=== PATIENT | male | born 1965 | race Caucasian/White ===

== ENCOUNTER 2021-06-15 14:06 | Inpatient (IN) | payer MEDICAID, OTHER ==
[~2021-06-15] VITALS: Ht 172.7 cm; Wt 72.6 kg
--- NOTE | 2021-06-15 14:49 | NUR ---
BIB [facility] FOR ALOC. PATIENT IS SLEEPY, AROUSES TO PRESSURE. VITAL SIGNS STABLE. PLACED ON CONTINUOUS PEST CONTROL SERVICE TECHNICIAN. IV ALREADY IN PLACE, FLUSHES WELL
[2021-06-15] MEDS ORDERED: ONDA4TAB11 PO (14:57)
[2021-06-15] MEDS ORDERED: ACET-2154 PO (14:57)
[2021-06-15] MEDS ORDERED: DOXA2TAB2 PO (14:57)
[2021-06-15] MEDS ORDERED: CHLO25CA22 PO (14:57)
[2021-06-15] MEDS ORDERED: QUET100T PO (14:57)
[2021-06-15] MEDS ORDERED: AMLO10TA59 PO (14:57)
[2021-06-15] MEDS ORDERED: QUET25TA PO (14:57)
[2021-06-15] MEDS ORDERED: MELA3TAB41 PO (14:57)
[2021-06-15] MEDS ORDERED: TAMS-3 PO (14:57)
[2021-06-15] MEDS ORDERED: HALO2TAB PO (14:57)
[2021-06-15] MEDS ORDERED: LABE200T5 PO (14:57)
[2021-06-15] MEDS ORDERED: HALOPERIDOL IM (14:57)
[2021-06-15] MEDS ORDERED: LOSA100T31 PO (14:57)
[2021-06-15 16:06] LABS: HEMATOCRIT 34.9 % (36.7-47.1); MEAN CORPUSCULAR HEMOGLOBIN 30.7 uug (23.8-33.4); MEAN CORPUSCULAR VOLUME 88.6 fL (73.0-96.2); PLATELET COUNT (AUTO) 291 K/uL (152-348)
[2021-06-15 16:19] LABS: CARBON DIOXIDE 28 mmol/L (21-32); CHLORIDE 104 mmol/L (98-107); CREATININE 0.8 mg/dL (0.6-1.3); GLUCOSE 123 mg/dL (74-106); POTASSIUM 3.6 mmol/L (3.5-5.1); UREA NITROGEN, BLOOD 20 mg/dL (7-18)
[2021-06-15 16:23] LABS: ETHANOL < 3 MG/DL (0-0)
[2021-06-15 16:24] LABS: THYROID STIMULATING HORMONE 0.857 mIU/mL (0.358-3.740)
--- NOTE | 2021-06-15 16:44 | NUR ---
PATIENT IS UNABLE TO VOID IN A CUP OR URINAL DR ABDULLAHI NOTIFIED. WILL PLACE [facility] FOR URINE SAMPLE PER
[2021-06-15 16:55] LABS: ACETAMINOPHEN < 2.0 ug/mL (10-30); ALANINE AMINOTRANSFERASE 23 U/L (16-63); ALKALINE PHOSPHATASE 98 U/L (50-136); ASPARTATE AMINOTRANSFERASE 25 U/L (15-37); BILIRUBIN,DIRECT 0.2 mg/dL (0.0-0.2); BILIRUBIN,TOTAL 0.5 mg/dL (0.2-1.0); TOTAL PROTEIN, SERUM 8.2 g/dL (6.4-8.2)
[2021-06-15] MEDS ORDERED: CEFTRIAXONE 1 G in IV DEXTROSE 5% 50 ML IV ONE (18:00)
[2021-06-15 18:59] LABS: *BILIRUBIN,URIN NEGATIVE (NEGATIVE); *BLOOD, URINE NEGATIVE (NEGATIVE); *CLARITY,URINE CLEAR (CLEAR); *COLOR,URINE YELLOW (YELLOW); *KETONES,URINE 1+ (NEGATIVE); LEUKOCYTE ESTERASE ,URINE NEGATIVE (NEGATIVE); NITRITE, URINE NEGATIVE (NEGATIVE); UGLUCOSE NEGATIVE (NEGATIVE)
[2021-06-15] MEDS ORDERED: AZITHROMYCIN IV 500 MG in IV DEXTROSE 5% 250 ML IV ONE (19:00)
[2021-06-15 19:17] LABS: *AMPHETAMINE, URINE NEGATIVE (NEGATIVE); *CANNABINOID, URINE NEGATIVE (NEGATIVE); *COCCAINE, URINE NEGATIVE (NEGATIVE); *OPIATE, URINE NEGATIVE (NEGATIVE); *PHENCYCLIDINE SCREEN,URINE NEGATIVE (NEGATIVE)
[2021-06-15] MEDS: CEFTRIAXONE 1 G in IV DEXTROSE 5% 50 ML IV SCH ×2 (19:23→19:50)
[2021-06-15] MEDS ORDERED: CEFTRIAXONE /D5W 50ML IVPB **ER PYXIS IV ONE (19:26)
[2021-06-15] MEDS ORDERED: MAGNESIUM HYDROXIDE 30 ML LIQUID UDC PO PRN (19:30)
[2021-06-15] MEDS ORDERED: ACETAMINOPHEN 325 MG TABLET PO PRN (19:30)
[2021-06-15] MEDS ORDERED: Z GUARD REMEDY PASTE 57 GM TUBE TOP PRN (19:30)
[2021-06-15] MEDS ORDERED: IV NS 1000 ML 1,000 ML IV PRN (19:30)
--- NOTE | 2021-06-15 19:30 | NUR ---
[facility] SENT TO LAB HAND OFF REPORT GIVEN TO MIKE FINLEY
[2021-06-15] MEDS ORDERED: AZITHROMYCIN 500MG/ D5W 250ML IVPB **ER PYXIS ONLY IV ONE (19:57)
--- NOTE | 2021-06-15 19:58 | NUR ---
ZITHROMAX 500MG IV ACCIDENTALLY CHARTED BY TUSHAR GARAY, INSTEAD OF ROCEPHINE 1 G VIA IV AT 192. ZITHROMAX ADMINISTERRED BY ME AT 1949 VIA IV 20 G RT FA.
--- NOTE | 2021-06-15 21:34 | NUR ---
Patient is resting comfortably in bed with eyes closed. Breathing even and unlabored.
--- NOTE | 2021-06-15 22:17 | NUR ---
GAVE REPORT TO TUSHAR SOTO.
--- NOTE | 2021-06-15 22:58 | NUR ---
Pt. admitted to tele room 322 , under care of CAMPUS RECRUITING COORDINATOR- Martina Mccann. Dx: AMS Belongs List completed
[2021-06-15] MEDS: LABETALOL HCL 200 MG TABLET PO SCH (23:00)
[2021-06-15 23:30] VITALS: BP 137/75
[2021-06-16 04:00] VITALS: BP 160/95
[2021-06-16 05:04] VITALS: BP 160/95
[2021-06-16 06:00] VITALS: BP 133/85
[2021-06-16] MEDS: LABETALOL HCL 200 MG TABLET PO SCH ×3 (06:00→22:00)
[2021-06-16] MEDS: LOSARTAN POTASSIUM 50 MG TABLET PO SCH (08:21)
[2021-06-16] MEDS: TAMSULOSIN HCL 0.4 MG CAP.SR.24H PO SCH (08:21)
[2021-06-16] MEDS: AMLODIPINE 10 MG TABLET PO SCH (08:22)
[2021-06-16 08:25] LABS: HEMATOCRIT 32.3 % (36.7-47.1); MEAN CORPUSCULAR HEMOGLOBIN 31.2 uug (23.8-33.4); MEAN CORPUSCULAR VOLUME 88.3 fL (73.0-96.2); PLATELET COUNT (AUTO) 277 K/uL (152-348)
[2021-06-16 08:35] LABS: CREATININE 0.8 mg/dL (0.6-1.3); MAGNESIUM 1.5 mg/dL (1.8-2.4); POTASSIUM 3.4 mmol/L (3.5-5.1)
[2021-06-16] MEDS: DOXAZOSIN 1 MG TABLET PO SCH (09:00)
[2021-06-16] MEDS ORDERED: Medication Not On Formulary EA (Losartan Potassium 1 TAB) PO SCH (09:00)
--- NOTE | 2021-06-16 09:24 | NUR ---
VERY CONFUSED ATTEMPTS TO HIT THE NURSE SPIT OUT MEDICATION AT THIS TIME.
--- NOTE | 2021-06-16 11:00 | NUR ---
PATIENT SEEN AND EVALUATED BY THE SPEECH THERAPIST AND SHE STATED TO KEEP PATIENT NPO FOR NOW WILL SEE HIM AGAIN LUKE MATSON AWARE.
[2021-06-16 12:00] VITALS: BP 135/78
[2021-06-16] MEDS ORDERED: POTASSIUM CHLORIDE 20 MEQ TAB.PRT.SR PO ONE (15:00)
--- NOTE | 2021-06-16 15:30 | NUR ---
POTASSIUM LEVEL IS 3.4 AND MAG IS 1.4 WITH NEW ORDERS AND NOTED PATIENT HAS A POOR VEIN PATIENTS PROVIDER AWARE WITH ORDER FOR A MIDLINE CUSHION SPRING ASSEMBLER AWARE THE MIDLINE NURSE WILL BE HERE ABOUT 1900 TODAY.
[2021-06-16] MEDS: POTASSIUM CHLORIDE 10 MEQ, LIDOCAINE-MPF 1% 1 ML in IV DEXTROSE 5% 100 ML IV SCH ×2 (15:54→17:58)
[2021-06-16 16:00] VITALS: BP 141/84
[2021-06-16] MEDS: IV D5/ 0.9% NACL 1,000 ML IV PRN (16:31)
[2021-06-16] MEDS ORDERED: PIPERACILLIN SODIUM/TAZOBACTAM 3.375 G in IV DEXTROSE 5% 50 ML IV ONE (17:00)
--- NOTE | 2021-06-16 17:38 | NUR ---
MID LINE INSERTED LEFT UPPER ARM GAUGE 18 ORDERED.
[2021-06-16] MEDS ORDERED: CEFTRIAXONE 1 G in IV DEXTROSE 5% 50 ML IV SCH (18:00)
--- NOTE | 2021-06-16 18:49 | NUR ---
TURNED AND REPOSITIONED LAST BAG OF POTASSIUM IS IN PROGRESS WILL ENDORSE THE 2 GRAMS OF MAGNESSIUM TO NEXT SHIFT.
[2021-06-16] MEDS ORDERED: AZITHROMYCIN IV 500 MG in IV DEXTROSE 5% 250 ML IV SCH (19:00)
[2021-06-16] MEDS: MAGNESIUM SULFATE/D5W 100 ML IV SCH ×2 (19:42→20:48)
[2021-06-16 20:00] VITALS: BP 146/81
[2021-06-16] MEDS: Z GUARD REMEDY PASTE 57 GM TUBE TOP SCH (20:49)
[2021-06-17] MEDS: PIPERACILLIN SODIUM/TAZOBACTAM 3.375 G in IV DEXTROSE 5% 100 ML IV SCH ×3 (01:18→16:33)
[2021-06-17 04:00] VITALS: BP 144/79
[2021-06-17] MEDS: LABETALOL HCL 200 MG TABLET PO SCH ×2 (06:00→13:21)
--- NOTE | 2021-06-17 06:55 | NUR ---
pt rested well in between care; pt remains somnolent and po meds are held for safety; IV Mg given; needs attended; continue to monitor; continue plan of care.
[2021-06-17 08:03] LABS: HEMATOCRIT 32.1 % (36.7-47.1); MEAN CORPUSCULAR HEMOGLOBIN 30.9 uug (23.8-33.4); MEAN CORPUSCULAR VOLUME 88.4 fL (73.0-96.2); PLATELET COUNT (AUTO) 276 K/uL (152-348)
[2021-06-17 08:10] LABS: CREATININE 0.7 mg/dL (0.6-1.3); POTASSIUM 3.3 mmol/L (3.5-5.1)
[2021-06-17] MEDS: TAMSULOSIN HCL 0.4 MG CAP.SR.24H PO SCH (09:05)
[2021-06-17] MEDS: DOXAZOSIN 1 MG TABLET PO SCH (09:08)
[2021-06-17] MEDS: LOSARTAN POTASSIUM 50 MG TABLET PO SCH (09:09)
[2021-06-17] MEDS: Z GUARD REMEDY PASTE 57 GM TUBE TOP SCH ×2 (09:09→20:10)
[2021-06-17] MEDS: AMLODIPINE 10 MG TABLET PO SCH (09:09)
--- NOTE | 2021-06-17 10:27 | NUR ---
WOUND CARE CONSULT: REVIEWED CHART, NURSING DOCUMENTATION AND PHOTO WHICH INDICATES SACRAL INTACT DEEP TISSUE INJURY, PRESENT ON ADMISSION. RECOMMENDATIONS MADE FOR SKIN PROTECTION. DISCUSSED WITH NURSING STAFF. MD IN AGREEMENT WITH PLAN OF CARE.
[2021-06-17] MEDS ORDERED: POTASSIUM CHLORIDE 20 MEQ TAB.PRT.SR PO ONE (10:45)
[2021-06-17 11:09] VITALS: BP 155/93
[2021-06-17 15:08] VITALS: BP 134/82
--- NOTE | 2021-06-17 18:30 | NUR ---
Patient seen and examined by speech therapy with ordered strict NPO for aspiration precaution, NGTube placement intact and patent. Patient awaiting PCR result, rapid covid test negative.
[2021-06-17] MEDS ORDERED: MAGNESIUM HYDROXIDE 30 ML LIQUID UDC NG PRN (18:45)
[2021-06-17 20:00] VITALS: BP 129/80
[2021-06-17] MEDS: LABETALOL HCL 200 MG TABLET NG SCH (22:00)
[2021-06-17] MEDS: IV D5/ 0.9% NACL 1,000 ML IV PRN (23:18)
--- NOTE | 2021-06-17 23:37 | NUR ---
Received pt resting in bed. Pt is nonverbal. On 2L O2 via NC, no acute distress noted. No facial cues for pain, FLACC 0. Noted pt pulled out his NGT. Pt is high risk aspiration, and is NPO. Notified [facility] with order to put NGT back, order an xray, and put mittens to prevent pulling out lines. Reinserted NGT. No bleeding noted. No acute distress during placement. Pt tolerated well. 2 nurses confirmed placement and waiting for radiologist to verify placement. As per [facility] BUSINESS ANALYST INTERN, pt can start with feeding of Jevity 1.2 @ 40cc/ hr once placement is verified and will consult dietitian. Pt turned and repositioned. Both heels offloaded. HOB elevated. Safety measures maintained. Will continue to monitor.
--- NOTE | 2021-06-18 00:03 | NUR ---
Unable to given 2200 Trandate dose due to pulled out NGT. Will continue to monitor.
[2021-06-18] MEDS: PIPERACILLIN SODIUM/TAZOBACTAM 3.375 G in IV DEXTROSE 5% 100 ML IV SCH ×3 (00:39→17:01)
--- NOTE | 2021-06-18 02:13 | NUR ---
Followed up with radiology regarding xray result for ngtube placement. As per radiologist, all imaging readings are backed up right now and will call again as soon as the result comes in.
--- NOTE | 2021-06-18 03:07 | NUR ---
Radiology called for CXR result, needs to advance NG tube. Advanced NG tube, pt tolerated well. No acute distress noted. Radiologist will verify placement again. Continue to monitor.
[2021-06-18 05:43] VITALS: BP 140/85
[2021-06-18] MEDS: LABETALOL HCL 200 MG TABLET NG SCH ×3 (06:05→21:29)
--- NOTE | 2021-06-18 06:23 | NUR ---
CXR result came out and NGT verified to be in place. DIRECTOR SAFETY ok to start feeding when placement is verified.
[2021-06-18] MEDS: JEVITY 1.2 1000 ML LIQUID GT PRN (07:02)
--- NOTE | 2021-06-18 07:17 | NUR ---
Pt retaining urine. Bladder scan showed 845 cc of retention. Lai catheter inserted with 900 cc output, yellow colored urine. NG tube feeding started, pt tolerating well. Will endorse accordingly.
[2021-06-18 08:04] LABS: HEMATOCRIT 31.1 % (36.7-47.1); MEAN CORPUSCULAR HEMOGLOBIN 31.2 uug (23.8-33.4); MEAN CORPUSCULAR VOLUME 88.3 fL (73.0-96.2); PLATELET COUNT (AUTO) 288 K/uL (152-348)
[2021-06-18 08:44] LABS: CREATININE 0.7 mg/dL (0.6-1.3)
[2021-06-18] MEDS ORDERED: DOXAZOSIN 1 MG TABLET NG SCH (09:00)
[2021-06-18] MEDS: Z GUARD REMEDY PASTE 57 GM TUBE TOP SCH ×2 (09:28→21:30)
[2021-06-18] MEDS: TAMSULOSIN HCL 0.4 MG CAP.SR.24H PO SCH (09:28)
[2021-06-18] MEDS: AMLODIPINE 10 MG TABLET NG SCH (09:41)
[2021-06-18] MEDS: DOXAZOSIN 2 MG TABLET NG SCH (09:41)
[2021-06-18] MEDS: LOSARTAN POTASSIUM 50 MG TABLET NG SCH (09:41)
--- NOTE | 2021-06-18 09:58 | NUR ---
Received patient with ongoing NGT of Jevity at 40cc/hr , tolerated well. Patient is awake , unable to follow commands, patient unable to engaged in a conversation, moans and can speak a word or two, on oxygen at 2lpm saturating at 99%. Checked placement of NGT via auscultation, patient's head of bed at 45 degree. All due meds given per MD order. no s/s of distress. Left upper arm midline intact. Call light within reach. All needs met promptly. Will continue to monitor for patient's safety.
[2021-06-18] MEDS: IV D5/ 0.9% NACL 1,000 ML IV PRN (12:40)
[2021-06-18 13:25] VITALS: BP 115/67
[2021-06-18 16:00] VITALS: BP 125/68
--- NOTE | 2021-06-18 18:00 | NUR ---
DC isolation per Salena Mccann LANDSCAPE NURSERYMAN, patient is no longer PUI.
--- NOTE | 2021-06-18 18:45 | NUR ---
Per Salena Mccann , patient is no longer a "PUI" will endorsed to the next shift .
[2021-06-18 20:30] VITALS: BP 117/76
[2021-06-19] MEDS: PIPERACILLIN SODIUM/TAZOBACTAM 3.375 G in IV DEXTROSE 5% 100 ML IV SCH ×3 (00:25→17:08)
[2021-06-19] MEDS: LABETALOL HCL 200 MG TABLET NG SCH ×3 (05:49→22:18)
[2021-06-19 05:50] VITALS: BP 139/74
--- NOTE | 2021-06-19 06:53 | NUR ---
Received pt asleep on bed with no respiratory distress noted upon initial rounds. On O2 at 2lpm via NC saturating at 95%. On NPO and Jevity 1.2 running at 40 ml/hr. MATTI midline still patent and intact with D5 NS 1 L running at 90 ml/hr. No infiltration on IV site. Mittens restraint order renewed, skin and circulation check done q2h. Pt slept intermittently throughout the night. All needs attended. Frequent visual checks done. Will endorse to next shift for continuity of care.
[2021-06-19 07:59] LABS: HEMATOCRIT 31.2 % (36.7-47.1); MEAN CORPUSCULAR HEMOGLOBIN 31.3 uug (23.8-33.4); PLATELET COUNT (AUTO) 316 K/uL (152-348)
[2021-06-19 08:34] LABS: CREATININE 0.7 mg/dL (0.6-1.3); POTASSIUM 3.1 mmol/L (3.5-5.1)
[2021-06-19] MEDS: IV D5/ 0.9% NACL 1,000 ML IV PRN (09:36)
[2021-06-19] MEDS: LOSARTAN POTASSIUM 50 MG TABLET NG SCH (09:39)
[2021-06-19] MEDS: AMLODIPINE 10 MG TABLET NG SCH (09:39)
[2021-06-19] MEDS: Z GUARD REMEDY PASTE 57 GM TUBE TOP SCH ×2 (09:39→22:19)
[2021-06-19] MEDS: TAMSULOSIN HCL 0.4 MG CAP.SR.24H PO SCH (09:39)
[2021-06-19] MEDS: DOXAZOSIN 2 MG TABLET NG SCH (09:39)
[2021-06-19] MEDS ORDERED: POTASSIUM CHLORIDE 20 MEQ POWDER PACKET NG ONE (10:00)
[2021-06-19 11:33] VITALS: BP 159/79
[2021-06-19] MEDS ORDERED: hydrALAZINE HCL 20 MG/1 ML VIAL IV PRN (11:45)
--- NOTE | 2021-06-19 14:54 | NUR ---
per licensed and certified midwife juan carlos hold feeding until ngt placement is confirmed. xray was done but no mention of ngt. called ana cristina at xray 2x and informed him he said will have md read result again. licensed and certified midwife juan carlos informed with order to hold ngt until confirmed. will cont to monitor.
--- NOTE | 2021-06-19 15:20 | NUR ---
received call from dr. galan and stated "no ngt seen in the pathway of the esophagus". informed with order to reinsert and kub to confirm noted and carried out.
[2021-06-19 16:00] VITALS: BP 146/69
--- NOTE | 2021-06-19 17:20 | NUR ---
called medical office technician said he will f/up with radiologist for kub results. pt is alert but non verbal. no acute distress noted. iv intact atb ongoing no adverse/allergic reaction. will cont to monitor.
--- NOTE | 2021-06-19 18:40 | NUR ---
awake in bed. ngt feeding resumed per order. pt keeps removing nasal cannula. was changed to simple mask at 3 Lpm satting 95-96%. no sob noted. hob elevated at all times for aspiration precaution. suctioned prn. safety measures in place. needs attended to. cont to monitor.
[2021-06-19] MEDS: ACETAMINOPHEN 325 MG TABLET NG PRN ×2 (18:52→22:18)
--- NOTE | 2021-06-19 19:30 | NUR ---
Patient is asleep in bed, with occasional agitation. Easily arousable with tactile stimuli. NGT in place to left nare. On 02 at 3L via simple mask, sating 96-97%. No sob noted. HOB elevated at all times for aspiration precaution. Mittens in place, no skin breakdown noted. No facial grimacing. Needs assessed and met. Safety measures initiated.
[2021-06-19] MEDS: JEVITY 1.2 1000 ML LIQUID GT PRN (22:18)
[2021-06-19 22:54] VITALS: BP 116/72
[2021-06-20] MEDS: PIPERACILLIN SODIUM/TAZOBACTAM 3.375 G in IV DEXTROSE 5% 100 ML IV SCH ×3 (01:20→16:16)
[2021-06-20] MEDS: LABETALOL HCL 200 MG TABLET NG SCH ×3 (05:34→22:00)
--- NOTE | 2021-06-20 05:50 | NUR ---
Patient is asleep in bed, with occasional agitation. Easily arousable with tactile stimuli. NGT in place to left nare. On 02 at 3L via NC, sating 98%. No sob noted. HOB elevated at all times for aspiration precaution. Mittens in place, no skin breakdown noted. No significant event this shift. Needs assessed and met. Safety measures initiated.
[2021-06-20 06:45] VITALS: BP 126/81
[2021-06-20 07:24] LABS: HEMATOCRIT 28.9 % (36.7-47.1); MEAN CORPUSCULAR HEMOGLOBIN 30.5 uug (23.8-33.4); MEAN CORPUSCULAR VOLUME 88.4 fL (73.0-96.2); PLATELET COUNT (AUTO) 265 K/uL (152-348)
--- NOTE | 2021-06-20 07:30 | NUR ---
received pt in bed eyes closed but responsive to stimuli. no acute distress. on 3 lpm nc satting 94-95%. no sob noted. ngt intact and patent feeding tolerated. no n/v/d reported. watson intact and patent yellow urine in the bag. iv intact and patent. no s/sx of facial grimacing. safety measures in place. cont to monitor.
[2021-06-20 07:31] LABS: CREATININE 0.9 mg/dL (0.6-1.3); POTASSIUM 3.4 mmol/L (3.5-5.1)
[2021-06-20] MEDS: Z GUARD REMEDY PASTE 57 GM TUBE TOP SCH ×2 (08:30→21:00)
[2021-06-20] MEDS: TAMSULOSIN HCL 0.4 MG CAP.SR.24H PO SCH (08:30)
[2021-06-20] MEDS: AMLODIPINE 10 MG TABLET NG SCH (08:30)
[2021-06-20] MEDS: DOXAZOSIN 2 MG TABLET NG SCH (08:30)
[2021-06-20] MEDS: LOSARTAN POTASSIUM 50 MG TABLET NG SCH (08:30)
[2021-06-20] MEDS ORDERED: POTASSIUM CHLORIDE 20 MEQ POWDER PACKET GT ONE (09:45)
[2021-06-20 12:00] VITALS: BP 144/84
[2021-06-20 16:00] VITALS: BP 135/77
--- NOTE | 2021-06-20 18:53 | NUR ---
alert and responsive. hob kept elevated for aspiration precaution. no s/sx of pain or sob. remains on 3lpm nc satting 95%. ngt feeding tolerated. no n/v/d. safety measures kept. needs attended. continue to monitor.
--- NOTE | 2021-06-20 19:00 | NUR ---
[facility] bedside. Pt is AAOx0. Pt is severely altered and unable to answer questions or follow commands.
[2021-06-20 20:03] VITALS: BP 122/69
[2021-06-21] MEDS: PIPERACILLIN SODIUM/TAZOBACTAM 3.375 G in IV DEXTROSE 5% 100 ML IV SCH ×3 (01:00→16:14)
[2021-06-21 04:06] VITALS: BP 119/63
[2021-06-21] MEDS: LABETALOL HCL 200 MG TABLET NG SCH ×2 (05:37→14:00)
[2021-06-21 08:20] LABS: HEMATOCRIT 27.1 % (36.7-47.1); MEAN CORPUSCULAR HEMOGLOBIN 31.2 uug (23.8-33.4); MEAN CORPUSCULAR VOLUME 87.9 fL (73.0-96.2); PLATELET COUNT (AUTO) 276 K/uL (152-348)
[2021-06-21 08:27] LABS: CREATININE 0.7 mg/dL (0.6-1.3); POTASSIUM 3.2 mmol/L (3.5-5.1)
[2021-06-21] MEDS: AMLODIPINE 10 MG TABLET NG SCH (09:00)
[2021-06-21] MEDS: LOSARTAN POTASSIUM 50 MG TABLET NG SCH (09:00)
[2021-06-21] MEDS: TAMSULOSIN HCL 0.4 MG CAP.SR.24H PO SCH (09:00)
[2021-06-21] MEDS: DOXAZOSIN 2 MG TABLET NG SCH (09:00)
[2021-06-21] MEDS: Z GUARD REMEDY PASTE 57 GM TUBE TOP SCH (11:10)
[2021-06-21] MEDS: POTASSIUM CHLORIDE 50 ML IV SCH ×4 (11:12→16:10)
[2021-06-21 12:00] VITALS: BP 144/78
[2021-06-21 16:00] VITALS: BP 111/76
--- NOTE | 2021-06-21 20:07 | NUR ---
awaiting for discharge . transport in for the ordered discharge. Day shift rn facilitating the discharge process
[2021-06-21 20:22] VITALS: BP 155/74
--- NOTE | 2021-06-21 20:25 | NUR ---
report given by the day shift rn to the facility and discharge process and document given to the ambulance personell. iv cannua to the right forearm discontinued and iv cannula to the left upper arm midline left in place for the iv antibiotics.ambulance personell in for the transfer,. report given by the day shift rn
[2021-06-21] MEDS ORDERED: LIDOCAINE-MPF 2% 5 ML VIAL IJ ONE (20:44)
[2021-06-21] MEDS ORDERED: PROPOFOL 200 MG/20 ML BOTTLE IV ONE (20:44)
--- NOTE | 2021-06-21 20:45 | NUR ---
discharge via [place] with ambulance personnel to [facility] for further care,
== END 2021-06-21 20:45 | DRG 720 ==
LOC: ER 14:06 → TRANSITION 20:08 → TELE3 22:19 → MEDSURG3 06-17 08:42
PROVIDERS: ADMIT Nurse Practitioner Acute Care; ATTEND Nurse Practitioner Acute Care
PROC: 05HF33Z Insertion of Infusion Device into Left Cephalic Vein, Percutaneous Approach (ICD-10-PCS; principal; 2021-06-16)
PROC: 0DH63UZ Insertion of Feeding Device into Stomach, Percutaneous Approach (ICD-10-PCS; 2021-06-21)
DX: A41.9 Sepsis, unspecified organism (principal); J69.0 Pneumonitis due to inhalation of food and vomit; G93.41 Metabolic encephalopathy; D68.59 Other primary thrombophilia; Z20.822 Contact with and (suspected) exposure to COVID-19; N40.0 Benign prostatic hyperplasia without lower urinary tract symptoms; R13.10 Dysphagia, unspecified; R62.7 Adult failure to thrive; F02.80 Dementia in other diseases classified elsewhere, unspecified severity, without behavioral disturbance, psychotic disturbance, mood disturbance, and anxiety; G20 Parkinson's disease; I10 Essential (primary) hypertension; Z74.01 Bed confinement status; Z86.73 Personal history of transient ischemic attack (TIA), and cerebral infarction without residual deficits; Z98.2 Presence of cerebrospinal fluid drainage device; Z87.440 Personal history of urinary (tract) infections; F10.11 Alcohol abuse, in remission; F15.11 Other stimulant abuse, in remission; R41.89 Other symptoms and signs involving cognitive functions and awareness; R79.89 Other specified abnormal findings of blood chemistry
CPT/HCPCS: 36415; 43761; 70030-TC; 70450; 71045; 74018; 83605; 83735; 84100; 84443; 85025; 85730; 87040; 93005; A4217; A4663; A6209; G0378; G0480; J0456; J0696; J2001; J2543; J3475; J3480; J3490; J7030; J7040; J7042; J7050; J7060; U0003